=== PATIENT | female | born 2000 | race Caucasian/White ===

== ENCOUNTER 2021-03-23 14:45 | Emergency (ER) | payer OTHER, BC ==
[~2021-03-23] VITALS: Ht 167.7 cm; Wt 68.0 kg
[2021-03-23 14:50] VITALS: BP 102/67
--- OUTSIDE RECORDS SUMMARY | 2021-03-23 14:51 | XMS REPORT | Clinical Summary ---
Author Author [facility] Organization [facility] Address Unknown Phone Unavailable Care Team Providers Care Continuity Editor Name Role Phone Kosta Garg MD PCP Allergies No known active allergies Medications End Date Status Medication Sig Dispensed Refills Start Date Active sertraline (ZOLOFT) 25 mg Take 0.5 15 tablet 1 tabletIndications: tablets (12.5 6 generalized anxiety mg total) by disorder, major mouth depressive disorder nightly. Active Problems Problem Noted Date MDD (major depressive disorder), recurrent severe, wi thout psychosis 03/31/2016 Substance use disorder 03/31/2016 Generalized anxiety disorder 03/24/2016 Immunizations Name Administration Dates Next Due Influenza QIV (IM) 03/25/2016 Family History Medical History Relation Name Comments Depression Maternal Uncle Depression Mother Asthma Sister Relation Name Status Comments Maternal Uncle Mother Sister Social History Date Tobacco Use Types Packs/Day Years Used Never Smoker Smokeless Tobacco: Never Used Comments Alcohol Use Standard Drinks/Week Yes 8 (1 standard drink = 0.6 o z pure alcohol) Sex Assigned at Date Recorded Female 11/07/2018 7:49 AM CDT Last Filed Vital Signs Reading Time Taken Comments Vital Sign 106/53 10/25/2017 11:40 PM CDT Blood Pressure 74 10/25/2017 11:40 PM CDT Pulse 36.8 C (98.3 F) 10/25/2017 10:14 PM CDT Temperature 14 10/25/2017 11:40 PM CDT Respiratory Rate 98% 10/25/2017 10:14 PM CDT Oxygen Saturation - - Inhaled Oxygen Concentration 68 kg (150 lb) 10/25/2017 10:14 PM CDT Weight 170.2 cm (5' 7") 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 Height - - Body Mass Index Plan of Treatment Health Maintenance Due Date Last Done Comments Td/Tdap# 1999 HPV Vaccine (1 - 2-dose 08/12/2010 series) Cervical Cancer Screening 08/12/2020 via Pap Smear Influenza Vaccine (#1) 2021 01/23/2017, 03/25/2016 MCV4 Vaccine Aged Out No longer eligible based on patient's age to complete this topic Pneumococcal Vaccine: Aged Out No longer eligib le based on patient's age to Pediatrics (0 to 5 Years) complete this topic and At-Risk Patients (6 to 64 Years) Results Not on filefrom Last 3 Months Insurance Type Payer Benefit Subscriber ID Effective Phone Address Plan / Dates Group AETNA AETNA [id number] 2016-P [phone] [id number] [place] [address] [id number] BURT Behavioral Mother [birth year]1964 [id number] [facility] (Home) [place] [address] MAXINE BURT Behavioral Mother [birth year]1964 [id number] [address] [facility] ([address] [place] [place] [address] Advance Directives For more information, please contact: [phone] 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
--- OUTSIDE RECORDS SUMMARY | 2021-03-23 14:51 | XMS REPORT | Clinical Summary ---
Author Author [facility] Organization [facility] Address Unknown Phone Unavailable Care Team Providers Care Manager Safe Name Role Phone Kosta Garg MD PCP Source Comments Some departments are not documenting in the electronic medical record. If you d o not see the information that you expected, contact Release of Information in [facility] [employer] Define Information Management department at [phone] for further assistan ce in locating additional records.[facility] Allergies No known active allergies Medications End Date Status Medication Sig Dispensed Refills Start Date Active MELATONIN PO Take 10 mg by 0 mouth at bedtime daily. Active traZODone (DESYREL) 50 mg Take 0.5 30 tablet 0 tablet tablets by 7 mouth at bedtime daily. Active fluoxetine (PROZAC) 20 mg Take 1 30 capsule 0 capsuleIndications: major capsule by 7 depressive disorder mouth daily. Indications: MAJOR DEPRESSIVE DISORDER Active Problems Problem Noted Date Moderate episode of recurrent major depressive disord er 01/19/2017 IVELISSE (generalized anxiety disorder) 01/19/2017 Immunizations Name Administration Dates Next Due Flu Vaccine =>6 Months 01/23/2017 Quadrivalent PF Surgical History Surgery Date Site/Laterality Comments LAPAROSCOPIC APPENDECTOMY 04/20/2015 - 04/19/2016 Social History Date Tobacco Use Types Packs/Day Years Used Never Smoker Smokeless Tobacco: Never Used Comments Alcohol Use Standard Drinks/Week "occasionally" Yes 0 (1 standard drink = 0.6 o z pure alcohol) Alcohol Habits Answer Date Recorded How often do you have a drink containing alcohol? No t asked How many drinks containing alcohol do you have on No t asked a typical day when you are drinking? How often do you have six or more drinks on one Not asked occasion? Comment: "occasionally" 01/18/2017 Sex Assigned at Date Recorded Not on file Last Filed Vital Signs Reading Time Taken Comments Vital Sign 92/52 01/23/2017 9:56 AM CDT Blood Pressure 58 01/23/2017 9:56 AM CDT Pulse 36.7 C (98 F) 01/23/2017 9:56 AM CDT Temperature - - Respiratory Rate - - Oxygen Saturation - - Inhaled Oxygen Concentration 67.7 kg (149 lb 3.2 oz) 01/18/2017 9:06 PM CDT waist 34" Weight 167.6 cm (5' 6") 01/18/2017 9:06 PM CDT Height 24.08 01/18/2017 9:06 PM CDT Body Mass Index Plan of Treatment Health Maintenance Due Date Last Done Comments CHLAMYDIA SCREENING 18-24 1999 YEARS HPV VACCINES (1 - 2-dose 08/12/2010 series) HIV SCREENING 08/12/2014 DTAP/TDAP VACCINES ( - 08/12/2017 Tdap) HEPATITIS C SCREENING 08/12/2017 PHYSICAL (COMPREHENSIVE) 08/12/2017 EXAM CERVICAL CANCER SCREENING 08/12/2020 INFLUENZA VACCINE 11/18/2020 01/23/2017 MENINGOCOCCAL VACCINE Aged Out No longer eligib le based on patient's age to (Sanjuana MAN) complete this topic Results Not on filefrom Last 3 Months Insurance Type Payer Benefit Subscriber ID Effective Phone Address Plan / Dates Group AETNA AETNA [id number] 2016-P [phone] [id number] [place] [address] Advance Directives 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 necessary based on Dx Care Teams Start Date End Date Manager Safe Relationship Specialty 01/18/17 Kosta Garg MD PCP - General Pediatrics [id number] [place] [address]
[2021-03-23] MEDS ORDERED: LIDOCAINE 1% INJ 20 ML 20 ML VIAL INJ ONE (15:00)
[2021-03-23] MEDS ORDERED: TETANUS,DIPTH,PERTUSS P/F (BOOSTRIX) 0.5 ML VIAL IM ONE (15:00)
--- NOTE | 2021-03-23 15:03 | ED Integumentary General ---
General Stated Complaint: LEFT PALM LAC Source: patient Exam Limitations: no limitations History of Present Illness Date Seen by Provider: Mar 23, 2021 Time Seen by Provider: 14:55 Initial Comments Patient is a 20-year-old female who presents to the emergency department today with a chief complaint of a laceration to the base of her left fifth finger. Patient states she was cleaning a mirror when she caught her hand on the edge of the glass. She had immediate bleeding. She denies any numbness tingling or weakness to her fifth finger. Last tetanus was when she was about 14 years old. She denies any other complaints of illness or injury Timing/Duration: just prior to arrival Severity: mild Location: hands Possible Cause: other (Laceration) Associated Symptoms: denies symptoms Allergies and Home Medications Allergies Coded Allergies: atomoxetine (Verified Allergy, Unknown, 12/12/17) Patient Home Medication List Home Medication List Reviewed: Yes Review of Systems Review of Systems Constitutional: see HPI EENTM: no symptoms reported Respiratory: no symptoms reported Cardiovascular: no symptoms reported Gastrointestinal: no symptoms reported Musculoskeletal: no symptoms reported Skin: other (Laceration) Past Xujlvqt-Oxpkkv-Sxospc Hx Immunizations Up To Date PED Vaccines UTD: Yes Seasonal Allergies Seasonal Allergies: No Past Medical History Surgeries: Yes Appendectomy Respiratory: No Cardiac: No Neurological: No Genitourinary: No Gastrointestinal: No Musculoskeletal: No Endocrine: No HEENT: No Cancer: No Psychosocial: Yes ADD/ADHD, Anxiety Integumentary: No Blood Disorders: No Physical Exam Vital Signs Capillary Refill : General Appearance: WD/WN, no apparent distress HEENT: PERRL/EOMI Neck: full range of motion Respiratory: no respiratory distress, no accessory muscle use Extremities: normal range of motion, non-tender, normal inspection Neurologic/Psychiatric: alert, normal mood/affect, oriented x 3 Skin: normal color, warm/dry, other (2 cm laceration to the volar aspect of the left hand at the base of the fifth finger. Minimal active bleeding is noted. Laceration is curvilinear in nature and extends through the skin into the subcutaneous tissue, a little bit of fat layer is exposed) Skin Problem Character: other (curvilinear) Procedures/Interventions Wound Location: Upper Extremities Other Wound Location left hand Wound Length (cm): 2 Wound's Depth, Shape: superficial Wound Explored: clean Irrigated w/ Saline (ccs): 50 Betadine Prep?: No Anesthesia: 1% Lidocaine Volume Anesthetic (ccs): 2 Suture: Ethlion Suture Size: 5-0 Number of Sutures: 4 Layer Closure?: 1 Sterile Dressing Applied?: Yes Progress cleansed with betasept and saline; wound margins approximated nicely. 4 sutures placed Progress/Results/Core Measures Results/Orders My Orders Orders - TREMAYNE CRAWFORD MD Dipht,Pertuss(Acell),Tet Adult (Boostrix (03/23/21 15:00) Lidocaine 1% Inj 20 Ml (Xylocaine 1% Inj (03/23/21 15:00) Medications Given in ED Current Medications Medications Dose Ordered Sig/Mercedes Route Start Time Stop Time Status Last Admin Dose Admin Diphtheria/ Tetanus/Acell Pertussis 0.5 ml ONCE ONCE IM 03/23/21 15:00 03/23/21 15:01 DC 03/23/21 15:13 0.5 ML Lidocaine HCl 20 ml ONCE ONCE INJ 03/23/21 15:00 03/23/21 15:01 DC 03/23/21 15:13 20 ML Departure Impression Primary Impression: Laceration of left hand Qualified Codes: S61.412A - Laceration without foreign body of left hand, initial encounter Disposition: HOME, SELF-CARE Condition: Stable Departure-Patient Inst. Decision time for Depature: 15:02 Referrals: [facility] [place],LOCAL PHYSICIAN (PCP) Primary Care Physician Patient Instructions: Laceration Repair With Stitches (DC) Add. Discharge Instructions: Keep the laceration clean dry and covered for the next 48 hours. You can apply a little Neosporin twice a day after washing gently with soap and water. The stitches will need to come out in 10 days. Return to the emergency department if you notice any increased redness, swelling, drainage of pus, fever or streaking up your hand or any other emergent concerning symptoms. TREMAYNE CRAWFORD MD Mar 23, 2021 15:03
== END 2021-03-23 15:32 | disposition home or self-care (01) ==
LOC: EDUNIT# 14:45 → ER 14:49
DX: S61.217A Laceration without foreign body of left little finger without damage to nail, initial encounter (principal); F41.9 Anxiety disorder, unspecified; F90.9 Attention-deficit hyperactivity disorder, unspecified type; Z23 Encounter for immunization; Z79.899 Other long term (current) drug therapy; W25.XXXA Contact with sharp glass, initial encounter
CPT/HCPCS: 12041; 90715